=== PATIENT | female | born 2000 | race American Indian/Alaskan Native ===

== ENCOUNTER 2021-11-27 01:26 | Emergency (ER) | payer SELFPAY ==
--- NOTE | 2021-11-27 07:49 | Emergency Department Report ---
ED Rash HPI - HPI Chief Complaint: Skin Rash Stated Complaint: RASH Rash Symptoms: Yes Itching, No Facial Swelling, No Tongue/Oral Swelling, No Breathing Difficulties, No Choking Sensation, No Wheezing/Dyspnea, No Peeling, No Blistering, No Fever, No Lightheaded, No Malaise, No Myalgias Severity: mild Other History: 20-year-old female presents to the ED complaining of scabies x6 weeks. She states that she was living with her boyfriend who gave her states scabies. States that she has intense pruritus with rash noted to her hands and bilateral extremity.. She denies any fever chills headache, nausea or vomiting at present time. Patient is alert and oriented x3. No acute distress noted. No ill appearance noted. ED Review of Systems ROS: Stated complaint: RASH Other details as noted in HPI Constitutional: denies: chills, fever Eyes: denies: eye pain, eye discharge, vision change ENT: denies: ear pain, throat pain Respiratory: denies: cough, shortness of breath, wheezing Cardiovascular: denies: chest pain, palpitations Endocrine: no symptoms reported Gastrointestinal: denies: abdominal pain, nausea, diarrhea Genitourinary: denies: urgency, dysuria, discharge Musculoskeletal: denies: back pain, joint swelling, arthralgia Skin: rash. denies: lesions Neurological: denies: headache, weakness, paresthesias Psychiatric: denies: anxiety, depression Hematological/Lymphatic: denies: easy bleeding, easy bruising ED Past Medical Hx - Medications Home Medications: Home Medications Medication Instructions Recorded Confirmed Last Taken Type Permethrin 5% [Acticin 5% CREAM] 1 applicatio TP ONCE 1 Days #1 tube 11/27/21 Unknown Rx hydrOXYzine HCL [Atarax] 25 mg PO Q6HR PRN 15 Days #30 11/27/21 Unknown Rx tablet Rash Exam - Exam General: Vital signs noted. No distress. Alert and acting appropriately. HEENT: No Periorbital Edema, No Conjuctival Injection, No Chemosis, No Perioral Edema, No Tongue Edema, No Uvular Edema, No Compromised Airway, No Drooling Lungs: Yes Good Air Exchange (Normal Breath Sounds), No Wheezes, No Ronchi, No Stridor, No Cough, No Labored Respirations, No Retractions, No Use of Accessory Muscles, No Other Abnormal Lung Sounds Heart: Yes Regular, No Murmur Skin: Yes Erythema (small papules noted), No Urticarial Rash, No Maculopapular Rash, No Morbilliform rash, No Bulla(e), No Weeping, No Tenderness, No Edema, No Encrustations Other: Positive: Abdomen Normal, Neurologic Normal, Musculoskeletal Normal ED Course Vital Signs 11/27/21 01:27 Temperature 98.7 F Pulse Rate 90 Respiratory 18 Rate Blood Pressure 140/90 [Left] O2 Sat by Pulse 97 Oximetry ED Medical Decision Making - Medical Decision Making 20-year-old female presents to the ED complaining of scabies x6 weeks. She states that she was living with her boyfriend who gave her states scabies. States that she has intense pruritus with rash noted to her hands and bilateral extremity.. She denies any fever chills headache, nausea or vomiting at present time. Patient is alert and oriented x3. No acute distress noted. No ill appearance noted. Physical examination patient has small tiny palpable noted throughout her upper and lower extremity also to the well per her finger. Rechecked the patient is resting quietly quietly and comfortable and feeling better. I discussed the results of diagnostic study, my clinical impression and the plan for further treatment with the patient. Patient agrees with plan and discharge at this present time. All question addressed. I have given the patient instruction regarding a diagnosis ,expectation ,follow- up and return precaution. I explained to the patient that emergent condition may arise and to return to the ED for new worsen and any new persisting condition. I have explained the importance of following up with the primary care physician or referral physician listed below has instructed. The patient verbalized understanding of discharge instruction. Critical care attestation.: If time is entered above; I have spent that time in minutes in the direct care of this critically ill patient, excluding procedure time. ED Disposition Clinical Impression: Scabies Disposition: 01 HOME / SELF CARE / HOMELESS Is pt being admited?: No Does the pt Need Aspirin: No Condition: Stable Instructions: Scabies, Adult Additional Instructions: Follow-up with primary care doctor in one week to repeat process Return to the ED for any worsening symptom Sure you apply the cream to our body and leave on overnight or at least 8 to 4- hour 14-hour before washing ou Prescriptions: Permethrin 5% [Acticin 5% CREAM] 1 applicatio TP ONCE 1 Days #1 tube hydrOXYzine HCL [Atarax] 25 mg PO Q6HR PRN 15 Days #30 tablet PRN Reason: Itching Referrals: [facility] [Provider Group] - 3-5 Days Forms: Work/School Release Form(ED)
[2021-11-27 08:06] VITALS: BP 110/72
== END 2021-11-27 09:55 | disposition home or self-care (01) ==
LOC: ED 01:26
DX: B86 Scabies (principal)
CPT/HCPCS: 99283